=== PATIENT | male | born 1980 | race Caucasian/White ===

== ENCOUNTER 2022-08-26 04:04 | Emergency (ER) | payer OTHER ==
[~2022-08-26] VITALS: Ht 188 cm; Wt 108.9 kg
[2022-08-26 04:31] VITALS: BP 136/80
--- NOTE | 2022-08-26 04:31 | NUR ---
BIBS FROM THE STREETS FOR OLD CUT ON LEFT FOOT. PT AMBULATORY WITH STEADY GAIT.
--- NOTE | 2022-08-26 04:55 | NUR ---
DR. LAURIE ADDISON AT PT'S BEDSIDE FOR EVAL
[2022-08-26] MEDS ORDERED: ACETAMINOPHEN 325 MG TABLET ONE (04:59)
--- NOTE | 2022-08-26 04:59 | NUR ---
EMT AT PT'S BEDSIDE TO APPLY BANDAGE TO PT'S LEFT FOOT. NO S/SX OF INFECTION NOTED. PT TOLERATED PROCEDURE WELL.
[2022-08-26] MEDS ORDERED: ACETAMINOPHEN 325 MG TABLET PO ONE (05:00)
--- NOTE | 2022-08-26 05:33 | NUR ---
Patient discharged to home in stable condition. Written and verbal after care instructions given. Patient verbalizes understanding of instruction. pt ambulatory with a steady gait
== END 2022-08-26 05:34 | disposition home or self-care (01) ==
LOC: ER 04:10
DX: S90.415A Abrasion, left lesser toe(s), initial encounter (principal); Z59.00 Homelessness unspecified; X58.XXXA Exposure to other specified factors, initial encounter; Y93.89 Activity, other specified; Y92.89 Other specified places as the place of occurrence of the external cause; Y99.8 Other external cause status